=== PATIENT | female | born 1985 | race Caucasian/White ===

== ENCOUNTER → 2016-05-25 | Outpatient (CLI) | payer SELFPAY ==
--- NOTE | 2016-05-26 07:55 | RAD ---
EXAM DESCRIPTION: Elbow,Right 3 Views CLINICAL HISTORY: 30 years,Female,PAIN IN RIGHT ELBOW COMPARISON: None FINDINGS: The right elbow demonstrates overlying splinting and casting material obscuring fine detail. No obvious evidence of fractures or dislocations.. IMPRESSION: Casted right elbow no gross visible abnormalities. Electronically signed by: Chetan Solano MD 05/26/2016 7:54 AM CDT
--- NOTE | 2016-05-26 07:57 | RAD ---
EXAM DESCRIPTION: Elbow,Right 3 Views CLINICAL HISTORY: 30 years,Female,PAIN IN RIGHT ELBOW COMPARISON: Earlier the same date FINDINGS: The right elbow demonstrates no evidence of fractures or acute abnormalities. There is been removal of the cast There is no joint effusion. Soft tissues appear unremarkable. IMPRESSION: Unremarkable elbow Electronically signed by: Chetan Solano MD 05/26/2016 7:56 AM CDT
== END | disposition home or self-care (01) ==
LOC: RAD 08:36
PROVIDERS: ATTEND Orthopaedic Surgery
DX: M25.521 Pain in right elbow (principal)